=== PATIENT | female | born 1970 | race African-American/Black ===

== ENCOUNTER 2016-09-23 08:32 | Emergency (ER) | payer OTHER ==
[~2016-09-23] VITALS: Ht 154.9 cm; Wt 50.8 kg
--- NOTE | ~2016-09-23 | CR117 ---
[facility] A Service of [facility] RADIOLOGY TEXT RESULTS PATIENT: JULIOCESAR RUBY LOCATION: [facility] : 74 UNIT #: [id number] AGE: [address]: Trinidad Banerjee APRN SEX: F ORDER DR: [id number] [facility] [address]. [place], [place] [address] [id number] MR#: [id number] #: [id number] NAME: JULIOCESAR RUBY : 1970 SEX: F STUDY DATE/TIME: 09/23/2016 9:43 UNIT: [facility] ROOM: STUDY DESCRIPTION: CR Finger 2 View Thumb Rt Attending Physician: Trinidad Banerjee A.P.R.N. Ordering Physician: Ed Doctor [id number] [facility] Primary Care Physician: Primary Care Physician No MEDICAL IMAGING REPORT This report is preliminary unless electronic signature is present EXAM Right thumb series, 09/23/2016 COMPARISON None HISTORY Right thumb pain and swelling since yesterday. FINDINGS Three views of the right thumb were obtained. There is a 3.7 mm oval small well corticated opacity noted anterior to the interphalangeal joint of the first digit. It has a chronic appearance. There is no obvious donor site noted in the adjacent phalanges to suggest a chronic displaced fracture fragment. Ossicle is lower in the differential consideration. Dystrophic calcification can be present. IMPRESSION 1. There is a 3.7 mm opacity noted anterior to the interphalangeal joint of the thumb. Though it could represent a fracture fragment, no obvious donor site is seen in the adjacent phalanges. It appears to be well corticated and chronic. Correlate clinically to exclude any acute abnormality associated with it. 2. No obvious fracture line or dislocation is seen. The calcification could also be dystrophic calcification with some adjacent soft tissue swelling. Dictated by... Duran Miles M.D. THIS IS AN ELECTRONICALLY VERIFIED REPORT Duran Miles M.D. at 09/23/2016 4:16 PM [facility] A Service of [facility] RADIOLOGY TEXT RESULTS PATIENT: JULIOCESAR RUBY LOCATION: [facility] : 74 UNIT #: [id number] AGE: [address]: Trinidad Banerjee APRN SEX: F ORDER DR: Martín TD: 09/23/2016 13:06 JOB #: [id number] MEDICAL IMAGING REPORT Page 1 of 1 COPY
[~2016-09-23 08:32] MED LIST: ALLERCLEAR10 MG PO; AMITRIPTYLINE H50 MG PO; VOLTAREN75 MG PO
== END 2016-09-23 10:54 | disposition home or self-care (01) ==
LOC: CFTX 08:32 → CED 08:32 → CFTX 10:39
DX: L03.011 Cellulitis of right finger (principal); J45.909 Unspecified asthma, uncomplicated
CPT/HCPCS: 29125; 73140; 99283